=== PATIENT | male | born 1980 | race Hispanic/Latino ===

== ENCOUNTER 2018-04-09 18:43 | Emergency (ER) | payer OTHER ==
[2018-04-09] MEDS ORDERED: Lidocaine 1% w/Epinephrine 1:100K 30 ML VIAL ONE (19:12)
[2018-04-09] MEDS ORDERED: Adacel (T-DAP) 0.5 ML VIAL ONE (19:19)
[2018-04-09] MEDS ORDERED: HYDROcodone/Acetaminophen 10/325 mg Tablet ONE (19:24)
[2018-04-09] MEDS ORDERED: Ibuprofen 800 MG TAB ONE (19:24)
[2018-04-09] MEDS ORDERED: Bacitracin Zinc 1 Packet ONE (19:29)
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
== END 2018-04-09 19:41 | disposition home or self-care (01) ==
LOC: BURERS 18:43
DX: S01.01XA Laceration without foreign body of scalp, initial encounter (principal); Z79.899 Other long term (current) drug therapy; W20.8XXA Other cause of strike by thrown, projected or falling object, initial encounter
CPT/HCPCS: 12002; 70450; 90471; 90715; J2001